=== PATIENT | female | born 1990 | race Caucasian/White ===

== ENCOUNTER 2017-10-31 13:05 | Emergency (ER) | payer BC ==
[2017-10-31] MEDS ORDERED: HYDROCODONE/APAP 5/325 MG TAB ONE (13:45)
--- NOTE | 2017-10-31 14:11 | ER ---
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 Transition of care: patient was not received from another setting of care. Onset of symptoms was October 31, 2017. Risk Assessment: Do you want to hurt yourself or someone else? Patient reports no desire to harm self or others. Initial Sepsis Screen: Does the patient meet any 2 criteria? No. Patient's initial sepsis screen is negative. Does the patient have a suspected source of infection? No. Patient's initial sepsis screen is negative. Care prior to arrival: None. 13:11 Method Of Arrival: Ambulatory 13:11 Acuity: RUIZ 4 Triage Assessment: 13:12 General: Appears in no apparent distress. uncomfortable, Behavior is calm, cooperative, hj appropriate for age. Pain: Complains of pain in dorsal aspect of right wrist and palmar aspect of right wrist. Musculoskeletal: Circulation, motion, and sensation intact. Capillary refill < 3 seconds, Range of motion: intact in all extremities. 13:13 Injury Description: N/A. 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 - Social history:: Smoking status: Patient/guardian denies using tobacco, Patient/guardian denies using alcohol. - Ebola Screening: : Patient negative for fever greater than or equal to 101.5 degrees Fahrenheit, and additional compatible Ebola Virus Disease symptoms Patient denies exposure to infectious person Patient denies travel to an Ebola-affected area in the 21 days before illness onset. Screenin:13 Abuse screen: Denies threats or abuse. Denies injuries from another. Nutritional hj screening: No deficits noted. Tuberculosis screening: No symptoms or risk factors identified. Fall Risk None identified. Vital Signs: 13:13 BP 135 / 82; Pulse 65; Resp 18; Temp 98.1(O); Pulse Ox 100% on R/A; Weight 78.93 kg; hj Height 5 ft. 7 in. (170.18 cm); Pain 10/10; 13:13 Body Mass Index 27.25 (78.93 kg, 170.18 cm) hj ED Course: 13:06 Patient arrived in ED. mr 13:07 None, None is Private Physician. mr 13:12 Triage completed. hj 13:13 Arm band placed on left wrist. hj 13:13 Patient has correct armband on for positive identification. Bed in low position. Call hj light in reach. Side rails up X 1. Adult w/ patient. 13:29 Chlesy Hernandez FNP-C is PHCP. snw 13:29 Popeye Chiu MD is Attending Physician. snw 13:31 Jake Miguel, REHANA is Primary Nurse. hj 13:46 Strep swab sent to lab. iw 13:52 Wrist Right 3 View XRAY In Process Unspecified. EDMS 14:09 Abdulkadir Casarez MD is Referral Physician. snw Administered Medications: 13:39 Drug: Orovada 5 mg-325 mg 1 tabs Route: PO; hj 13:44 Follow up: Response: No adverse reaction; Pain is decreased hj Outcome: 14:10 Discharge ordered by . snw 14:55 Patient left the ED. iw Signatures: Dispatcher [employer] EDMS Chelsy Hernandez FNP-C DRYWALL CARRIER-Stephen Guadalupe Nichols Irene, RN RN iw Jake Miguel RN RN hj Corrections: (The following items were deleted from the chart) 13:31 13:11 Presenting complaint: Patient states: yesterday when i woke up my R wrist was hj hurting, denies trauma to the area; reports tingling on R thumb; hj
--- NOTE | 2017-10-31 14:11 | EDPHYS ---
Physician Documentation [facility] Name: Nicolasa Green Age: 27 yrs Sex: Female : 1990 Arrival Date: 10/31/2017 Time: 13:06 Bed 11 Private MD: None, None ED Physician Popeye Chiu HPI: 10/31 14:06 This 27 yrs old Female presents to ER via Ambulatory with complaints of Wrist snw Injury. 14:06 The patient or guardian reports decreased range of motion, pain, swelling. The snw complaints affect the right wrist diffusely. Context: The problem was sustained at home, resulted from an unknown cause. Onset: The symptoms/episode began/occurred suddenly, today. Associated signs and symptoms: The patient has no apparent associated signs or symptoms. Compartment Syndrome negative for tingling. The patient has not experienced similar symptoms in the past. The patient has not recently seen a physician. 14:07 no recent fever, sore throat, trauma. 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 - Social history:: Smoking status: Patient/guardian denies using tobacco, Patient/guardian denies using alcohol. - Ebola Screening: : Patient negative for fever greater than or equal to 101.5 degrees Fahrenheit, and additional compatible Ebola Virus Disease symptoms Patient denies exposure to infectious person Patient denies travel to an Ebola-affected area in the 21 days before illness onset. ROS: 14:05 Constitutional: Negative for fever, chills, and weight loss, Eyes: Negative for injury, snw pain, redness, and discharge, ENT: Negative for injury, pain, and discharge, Neck: Negative for injury, pain, and swelling, Cardiovascular: Negative for chest pain, palpitations, and edema, Respiratory: Negative for shortness of breath, cough, wheezing, and pleuritic chest pain, Abdomen/GI: Negative for abdominal pain, nausea, vomiting, diarrhea, and constipation, Back: Negative for injury and pain, : Negative for injury, bleeding, discharge, and swelling, Skin: Negative for injury, rash, and discoloration, Neuro: Negative for headache, weakness, numbness, tingling, and seizure. 14:05 MS/extremity: Positive for decreased range of motion, pain, swelling, of the dorsal aspect of right wrist. Exam: 14:04 Constitutional: This is a well developed, well nourished patient who is awake, alert, snw and in no acute distress. Head/Face: Normocephalic, atraumatic. Eyes: Pupils equal round and reactive to light, extra-ocular motions intact. Lids and lashes normal. Conjunctiva and sclera are non-icteric and not injected. Cornea within normal limits. Periorbital areas with no swelling, redness, or edema. ENT: Nares patent. No nasal discharge, no septal abnormalities noted. Tympanic membranes are normal and external auditory canals are clear. Oropharynx with no redness, swelling, or masses, exudates, or evidence of obstruction, uvula midline. Mucous membranes moist. Neck: Trachea midline, no thyromegaly or masses palpated, and no cervical lymphadenopathy. Supple, full range of motion without nuchal rigidity, or vertebral point tenderness. No Meningismus. Chest/axilla: Normal chest wall appearance and motion. Nontender with no deformity. No lesions are appreciated. Cardiovascular: Regular rate and rhythm with a normal S1 and S2. No gallops, murmurs, or rubs. Normal PMI, no JVD. No pulse deficits. Respiratory: Lungs have equal breath sounds bilaterally, clear to auscultation and percussion. No rales, rhonchi or wheezes noted. No increased work of breathing, no retractions or nasal flaring. Abdomen/GI: Soft, non-tender, with normal bowel sounds. No distension or tympany. No guarding or rebound. No evidence of tenderness throughout. Back: No spinal tenderness. No costovertebral tenderness. Full range of motion. Skin: Warm, dry with normal turgor. Normal color with no rashes, no lesions, and no evidence of cellulitis. Neuro: Awake and alert, GCS 15, oriented to person, place, time, and situation. Cranial nerves II-XII grossly intact. Motor strength 5/5 in all extremities. Sensory grossly intact. Cerebellar exam normal. Normal gait. Psych: Awake, alert, with orientation to person, place and time. Behavior, mood, and affect are within normal limits. 14:04 Musculoskeletal/extremity: Extremities: grossly normal except: noted in the dorsal aspect of right wrist: decreased ROM, pain, swelling, tenderness, Circulation is intact in all extremities. Sensation intact. Vital Signs: 13:13 BP 135 / 82; Pulse 65; Resp 18; Temp 98.1(O); Pulse Ox 100% on R/A; Weight 78.93 kg; hj Height 5 ft. 7 in. (170.18 cm); Pain 10/10; 13:13 Body Mass Index 27.25 (78.93 kg, 170.18 cm) hj MDM: 13:30 Patient medically screened. snw 14:17 Data reviewed: vital signs, nurses notes. Data interpreted: Pulse oximetry: on room air snw is 100 %. Counseling: I had a detailed discussion with the patient and/or guardian regarding: the historical points, exam findings, and any diagnostic results supporting the discharge/admit diagnosis, radiology results, the need for outpatient follow up, to return to the emergency department if symptoms worsen or persist or if there are any questions or concerns that arise at home. Special discussion: Based on the history and exam findings, there is no indication for further emergent testing or inpatient evaluation. I discussed with the patient/guardian the need to see the orthopedic surgeon for further evaluation of the symptoms. 10/31 13:35 Order name: Strep; Complete Time: 14:08 snw 10/31 14:08 Order name: Throat Culture EDMS 10/31 13:35 Order name: Wrist Right 3 View XRAY; Complete Time: 14:33 snw 10/31 14:04 Order name: Wrist Splint; Complete Time: 14:25 snw Administered Medications: 13:39 Drug: Harman 5 mg-325 mg 1 tabs Route: PO; hj 13:44 Follow up: Response: No adverse reaction; Pain is decreased hj Disposition: 10/31/17 14:10 Discharged to Home. Impression: Pain in right wrist. - Condition is Stable. - Discharge Instructions: Arthralgia, Cast or Splint Care, Musculoskeletal Pain, Wrist Pain, Cryotherapy, [id number]. - Prescriptions for Diclofenac Sodium 75 mg Oral Tablet Sustained Release - take 1 tablet by ORAL route 2 times per day; 30 tablet. - Work release form, Medication Reconciliation Form, Thank You Letter, Antibiotic Education, Prescription Opioid Use, Family Work Release form. - Follow up: Emergency Department; When: As needed; Reason: Worsening of condition. Follow up: Abdulkadir Casarez MD; When: 1 - 2 days; Reason: Recheck today's complaints, Continuance of care. Addendum: 11/02/2017 06:20 Co-signature as Attending Physician, Popeye Chiu MD. g s Signatures: Dispatcher [employer] EDChelsy Chang, NATALYA-C HOOK UP-Csnw Analy White, RN RN Jake Wang RN RN Popeye Carmen MD MD Corrections: (The following items were deleted from the chart) 10/31 14:55 14:10 10/31/2017 14:10 Discharged to Home. Impression: Pain in right wrist. Condition iw is Stable. Forms are Medication Reconciliation Form, Thank You Letter, Antibiotic Education, Prescription Opioid Use. Follow up: Emergency Department; When: As needed; Reason: Worsening of condition. Follow up: Abdulkadir Casarez; When: 1 - 2 days; Reason: Recheck today's complaints, Continuance of care. snw
--- NOTE | 2017-10-31 14:29 | RAD REPORT ---
EXAM DESCRIPTION: RAD - Wrist Right 3 View - 10/31/2017 1:53 pm CLINICAL HISTORY: Nontraumatic wrist pain COMPARISON: None. FINDINGS: No fracture is identified. There is no dislocation or periosteal reaction noted. Epiphyses and growth plates are Normal in appearance. No foreign body or other soft tissue abnormality. IMPRESSION: Negative right wrist examination.
[2017-10-31 15:03] VITALS: BP 135/82; TEMP 98.1; O2SAT 100
== END 2017-10-31 14:55 | disposition home or self-care (01) ==
LOC: ER 13:05
DX: M25.531 Pain in right wrist (principal)
CPT/HCPCS: 87070; 87081; 99283